=== PATIENT | male | born 1970 | race African-American/Black ===

== ENCOUNTER 2018-03-03 08:44 | Emergency (ER) | payer SELFPAY ==
[2018-03-03] MEDS ORDERED: cloNIDine 0.1 MG TAB ONE (09:18)
[2018-03-03] MEDS ORDERED: Oxymetazoline HCl 0.05% ( 15 ML ) ONE (09:18)
[2018-03-03 09:44] LABS: ALT (SGPT) 21 U/L (8-55); AST (SGOT) 34 U/L (5-34); Albumin 3.1 g/dL (3.5-5.0); Alkaline Phosphatase 40 U/L (40-150); Anion Gap 10 mmol/L (10-20); BUN (Urea Nitrogen) 4 mg/dL (8.9-20.6); Bilirubin, Total 0.3 mg/dL (0.2-1.2); CK (CPK) 59 U/L (30-200); Calc. Creatinine Clearance 0 mL/min (70-130); Calcium 8.3 mg/dL (7.8-10.44); Carbon Dioxide 29 mmol/L (22-29); Chloride 103 mmol/L (98-107); Estimated GFR-MDRD Greater than 90; Globulin 3.5 g/dL (2.4-3.5); Glucose 86 mg/dL (70-105); Protein, Total 6.6 g/dL (6.0-8.3); Sodium 139 mmol/L (136-145)
[2018-03-03 09:49] LABS: CKMB 0.7 ng/mL (0-6.6); Troponin I Less than 0.010 ng/mL (< 0.028)
[2018-03-03 09:53] LABS: Hemoglobin 13.7 g/dL (14.0-18.0); Lymphocytes 70 % (21-51); MDiff Complete? YES; Macrocytosis SLIGHT = 6-15 cells (100X) (0-5/hpf); Mean Corpuscular HGB CONC 34.6 g/dL (32.0-36.0); Mean Platelet Volume 6.5 fL (7.4-10.4); Monocytes 11 % (0-10); Neutrophil 19 % (42-75); Platelet Count 351 thou/uL (130-400); RBC Distribution Width 14.8 % (11.5-14.5); Red Blood Cell (RBC) Count 3.44 mill/uL (4.70-6.10); White Blood Cell (WBC) Count 3.5 thou/uL (4.8-10.8)
== END 2018-03-03 10:39 | disposition home or self-care (01) ==
LOC: ERS 08:44
DX: R04.0 Epistaxis (principal); J01.90 Acute sinusitis, unspecified; F17.200 Nicotine dependence, unspecified, uncomplicated
CPT/HCPCS: 36415; 80053; 82550; 82553; 83880; 84484; 85025; 99283

== ENCOUNTER 2018-03-05 07:55 | Emergency (ER) | payer SELFPAY ==
[2018-03-05] MEDS ORDERED: Oxymetazoline HCl 0.05% ( 15 ML ) ONE (08:04)
[2018-03-05] MEDS ORDERED: cloNIDine 0.1 MG TAB ONE (08:04)
[2018-03-05 08:25] LABS: PTT 27.4 SEC (22.9-36.1); Prothrombin Time 13.6 SEC (12.0-14.7)
== END 2018-03-05 13:20 | disposition home or self-care (01) ==
LOC: ERS 07:55
DX: R04.0 Epistaxis (principal); I10 Essential (primary) hypertension
CPT/HCPCS: 36415; 85610; 85730; 99283